=== PATIENT | female | born 1980 | race Caucasian/White ===

== ENCOUNTER 2017-03-02 06:12 | Day surgery (SDC) | payer BC ==
[2017-02-27 15:01] VITALS: BMI 47.7
[2017-03-02] MEDS ORDERED: DEXAMETHASONE SOD PHOSPHATE/PF 10 MG/ML SDV ONE ×2 (06:42→07:13)
[2017-03-02] MEDS ORDERED: MIDAZOLAM HCL 2 MG/2 ML SINGLE DOSE VIAL ONE ×2 (06:43→07:13)
[2017-03-02] MEDS ORDERED: ROPIVACAINE HCL 0.5% 30ML VIAL ONE ×2 (06:43→07:13)
[2017-03-02] MEDS ORDERED: PROPOFOL 20 ML ONE ×4 (07:34)
[2017-03-02] MEDS ORDERED: CLINDAMYCIN PHOSPHATE 600 MG/4 ML VIAL ONE (08:02)
[2017-03-02] MEDS ORDERED: BUPIVACAINE HCL/PF 2.5 MG/ML - 30 ML VIAL IJ ONE (08:22)
[2017-03-02] MEDS ORDERED: BUPIVACAINE HCL/PF 0.25% (2.5MG/ML) 10 ML VIAL IJ ONE (08:35)
[2017-03-02 09:40] VITALS: TEMP 98.3
[2017-03-02 10:22] VITALS: BP 110/70; PULSE 92
--- NOTE | 2017-03-04 15:28 | OP ---
DATE OF OPERATION: 03/02/2017 SURGEON: Austin Nowak MD RN TEAM LEADER: Les Durbin PA-C PREOPERATIVE DIAGNOSES: 1. Right shoulder rotator cuff tear. 2. Right shoulder impingement syndrome. 3. Right shoulder acromioclavicular degenerative joint disease. 4. Right shoulder superior labral tear, anterior and posterior with synovitis. POSTOPERATIVE DIAGNOSES: 1. Right shoulder rotator cuff tear. 2. Right shoulder impingement syndrome. 3. Right shoulder acromioclavicular degenerative joint disease. 4. Right shoulder superior labral tear, anterior and posterior with synovitis. PROCEDURE: 1. Right shoulder arthroscopy with rotator cuff repair. 2. Right shoulder arthroscopy with subacromial decompression. 3. Right shoulder arthroscopy with resection of distal clavicle acromioclavicular joint. 4. Right shoulder arthroscopy debridement (major). CPT Codes 42269, 00271, 60561, 88659. FINDINGS: 1. Full thickness rotator cuff tear with complete avulsion supraspinatus. 2. Partial biceps tendon tear 10%. 3. Glenohumeral synovitis. 4. Superior labral anterior to posterior with intact biceps. 5. Inferior superior to the clavicular with subacromial joint disease. 6. Type 1 to 2 acromion with anterior spurring. 7. Thickness to the interosseous subacromial space. REPAIR TYPE: Four mattress sutures were placed into the supraspinatus and secured to a bleeding bone bed along the greater tuberosity. This was done using the Opus technique. PROCEDURE: Informed consent was obtained. The patient was taken to the operating room where the upper extremity was prepped and draped in a sterile fashion. The shoulder was manipulated for a full range of motion. Posterior incision portal was made and directed to glenohumeral joint. Under direct visualization, an anterior incision and portal was made. Extensive synovitis, as well as chondral injuries throughout the glenohumeral joint were debrided and removed. Any identified labral injuries, including superior labral tear, anterior and posterior, and anterior labrum torn portions were removed as well. Rotator cuff was visualized and noted to have full-thickness tear. The edges were debrided. Posterior incision portal was redirected to subacromial space where a lateral incision portal was made. Excessive and thickened scar tissue noted throughout the subacromial space, including bursal and scar tissue were removed. The type 2 acromion was converted into a flattened type 1 using a jaydon for subacromial decompression. Distal inferior spur at the distal clavicle was also debrided with the use of accessory portal in the AC joint. The edges of the rotator cuff were identified. Sutures were placed into the rotator cuff and secured using anchors throughout the greater tuberosity. Prior to securing, a bleeding bed was made using a small jaydon, creating a bleeding surface of the rotator cuff insertion. The shoulder was then drained. A single suture as placed on all portals and a sterile dressing was placed. The patient was transferred to the recovery room without complication. ADDENDUM: Please note the distal clavicle resection including the undersurface of the clavicle extending 1 cm and extending into the intraarticular portion through accessory portal. AUSTIN NOWAK M.D. [id number]
== END 2017-03-02 10:30 | disposition home or self-care (01) ==
LOC: FASU 06:12
PROVIDERS: ATTEND Orthopaedic Surgery
PROC: 0RNJ4ZZ Release Right Shoulder Joint, Percutaneous Endoscopic Approach (ICD-10-PCS; 2017-03-02)
PROC: 0RBJ4ZZ Excision of Right Shoulder Joint, Percutaneous Endoscopic Approach (ICD-10-PCS; 2017-03-02)
PROC: 0LB14ZZ Excision of Right Shoulder Tendon, Percutaneous Endoscopic Approach (ICD-10-PCS; principal; 2017-03-02 08:24)
DX: M75.121 Complete rotator cuff tear or rupture of right shoulder, not specified as traumatic (principal); M75.41 Impingement syndrome of right shoulder; M19.011 Primary osteoarthritis, right shoulder; S43.431A Superior glenoid labrum lesion of right shoulder, initial encounter; X58.XXXA Exposure to other specified factors, initial encounter; Y93.9 Activity, unspecified; Y92.9 Unspecified place or not applicable; M65.811 Other synovitis and tenosynovitis, right shoulder
CPT/HCPCS: 84703